=== PATIENT | male | born 1970 | race Caucasian/White ===

== ENCOUNTER 2017-10-15 08:19 | Emergency (ER) | payer BC, MEDICAID ==
[~2017-10-15] VITALS: Ht 188 cm; Wt 102.0 kg
[~2017-10-15 08:19] MED LIST: CYCL-1 PO; FAMO40TA73 PO; LORA-835 PO
[2017-10-15] MEDS ORDERED: IBUP-1985 PO (09:49)
[2017-10-15 10:02] VITALS: BP 127/79
== END 2017-10-15 10:01 | disposition home or self-care (01) ==
LOC: ER 08:19
DX: H92.02 Otalgia, left ear (principal); J45.909 Unspecified asthma, uncomplicated; F12.10 Cannabis abuse, uncomplicated; G43.909 Migraine, unspecified, not intractable, without status migrainosus; M19.90 Unspecified osteoarthritis, unspecified site; Z79.899 Other long term (current) drug therapy
CPT/HCPCS: 99282; J7120